=== PATIENT | female | born 1960 | race Caucasian/White ===

== ENCOUNTER 2021-11-14 17:45 | Emergency (ER) | payer SELFPAY ==
[2021-11-14] MEDS ORDERED: IBUPROFEN 400 MG TABLET (FP) PO ONE ×2 (17:47→17:53)
[2021-11-14 18:08] VITALS: BP 150/73; PULSE 65; TEMP 98.4; BMI 22.8
== END 2021-11-14 19:15 | disposition home or self-care (01) ==
LOC: FER 17:45
PROC: 2W3QX1Z Immobilization of Right Lower Leg using Splint (ICD-10-PCS; principal; 2021-11-14)
DX: S82.891A Other fracture of right lower leg, initial encounter for closed fracture (principal); W19.XXXA Unspecified fall, initial encounter
CPT/HCPCS: 73590-TC-RT-FY; 73610-TC-RT-FY; 99283-25